=== PATIENT | female | born 1965 | race Caucasian/White ===

== ENCOUNTER → 2017-12-09 | Outpatient (CLI) | payer BC, OTHER ==
[~2017-12-09] MED LIST: BYSTOLIC10 MG PO; FISH OIL 1,001000 M2; PRILOSEC20 MG; VITAMIN D1000 UNI1 PO; VITAMIN E100 UNIT
== END ==
LOC: M.RAD 08:19
DX: Z12.31 Encounter for screening mammogram for malignant neoplasm of breast (principal)

== ENCOUNTER → 2017-12-09 | Outpatient (CLI) | payer OTHER | LOC: M.CT 08:11 | DX: Z13.6 Encounter for screening for cardiovascular disorders (principal) ==